=== PATIENT | female | born 1955 | race Caucasian/White ===

== ENCOUNTER 2024-09-21 15:55 | Emergency (ER) | payer MEDICARE, OTHER ==
[~2024-09-21] VITALS: Ht 160 cm; Wt 72.5 kg
[2024-09-21] VITALS (22 sets, daily range): BP systolic 133–205; BP diastolic 68–106
[2024-09-21] MEDS ORDERED: COZAAR50 MG PO (16:28)
[2024-09-21] MEDS ORDERED: HYDROCHLOROT12.5 M1 PO (16:28)
[2024-09-21] MEDS ORDERED: TRAZODONE HYDR150 MG PO (16:29)
[2024-09-21] MEDS ORDERED: diazePAM 10 MG/2 ML VIAL IV ONE (16:55)
[2024-09-21] MEDS ORDERED: ONDANSETRON HCl 4 MG/2 ML SDV IV ONE (17:10)
[2024-09-21] MEDS ORDERED: LABETALOL HCL 100 MG/20 ML VIAL IV ONE (17:30)
[2024-09-21 17:35] LABS: BASO% 0.4 % (0-3); EOS% 1.4 % (0-8); HEMATOCRIT 42.8 % (37.0-47.0); HEMOGLOBIN 13.7 g/dl (12.0-16.0); IMMATURE GRANULOCYTES 0.7 % (0.0-5.0); MEAN CELL VOLUME 89.2 fL CALC (80.0-100.0); MEAN CORPUSCULAR HGB 28.5 pG CALC (26.0-32.0); MONO% 9.5 % (2-13); NEUT# 4.65 thou/uL (2.00-7.15); RED BLOOD COUNT 4.8 mill/uL (4.20-5.60); RED CELL DISTRI WIDTH 11.9 % (11.5-15.5)
[2024-09-21 17:47] LABS: ALBUMIN 4.3 g/dL (3.2-5.0); BILIRUBIN, TOTAL 0.6 mg/dL (0.02-1.3); CREATININE 0.9 mg/dL (0.5-1.0); TOTAL PROTEIN 7.4 g/dL (6.3-8.2)
[2024-09-21] MEDS ORDERED: DIAZEPAM5 MG PO (20:41)
== END 2024-09-21 21:05 | disposition home or self-care (01) ==
LOC: ED 15:55
PROVIDERS: Family Medicine
DX: R42 Dizziness and giddiness (principal); I10 Essential (primary) hypertension; Z85.42 Personal history of malignant neoplasm of other parts of uterus
CPT/HCPCS: J1920; J2405; J3360